=== PATIENT | male | born 1970 | race American Indian/Alaskan Native ===

== ENCOUNTER → 2016-07-31 | Outpatient (CLI) | payer BC, OTHER ==
--- NOTE | ~2016-07-31 | EKG ---
[address] [address] ELECTROCARDIOGRAM REPORT Name: RAJWINDER MARRUFO [facility] Room #: REG CLI [facility]#: [id number] Admission: 07/31/16 Attend Phys: Eder Singh MD Discharge: Date of : 68 Report #: [id number] THIS REPORT FOR: //name// [facility] Test Date: 2016-07-31 Test Time: 11:43:27 Pat Name: RAJWINDER MARRUFO Department: Room: Gender: M Press Catcher: nighat : 1970 Requested By: Eder Singh Order Number: [id number] MD: Nitin Marie Measurements Intervals [place] Rate: 68 P: 38 [place]: 165 QRS: -27 QRSD: 100 T: 75 QT: 422 QTc: 449 Interpretive Statements Sinus rhythm Borderline left axis deviation Poor R wave progression No previous ECG available for comparison Electronically Signed On 08-01-2016 7:21:28 CDT by Nitin Marie [email or web address] <ELECTRONICALLY SIGNED> By: Nitin Marie MD, [facility] 08/01/16 0721 1143 1143 Nitin Marie MD, FACC /EPI
== END ==
LOC: CV
DX: Z01.818 Encounter for other preprocedural examination (principal); E04.9 Nontoxic goiter, unspecified; E21.3 Hyperparathyroidism, unspecified

== ENCOUNTER 2016-08-06 05:25 | Inpatient (IN) | payer BC, OTHER ==
[~2016-08-06] VITALS: Ht 172.7 cm; Wt 81.6 kg
--- NOTE | ~2016-08-06 | H ---
[facility] [place] [address] HISTORY AND PHYSICAL Name: RAJWINDER [place]ARRU[place] [facility] Room #: 310-P REG [facility].#: [id number] Admission: 08/06/16 Attend Phys: Darrell Cruz MD Discharge: Date of : 68 Report #: [id number] THIS REPORT FOR: //name// CC: [facility] physician/PCP SOURAV Cruz DATE OF SERVICE: 08/06/2016 REASON FOR ADMISSION: Post parathyroidectomy. HISTORY OF PRESENT ILLNESS: This is a 46-year-old male who has a long history of renal problems. Most recently, he has been on hemodialysis. He has developed severe secondary hyperparathyroidism. He has been unable to get this controlled in spite of aggressive therapy with phosphate binders, dietary changes, Sensipar, which is a calcimimetic. He has run parathyroid hormone level as high as 2000. He had been referred from dialysis in our group to Dr. Sourav Singh of ENT. Earlier today, Dr. Singh did a total parathyroidectomy and autotransplantation of part of one gland in the sternocleidomastoid muscle. With that procedure, the patient had an intraoperative drop of his parathyroid hormone level, which was quite dramatic. He was 1473 at the beginning of surgery, by 15:10 this afternoon he dropped to 53.1. With that, his calcium level was 7.5, but has dropped to 7.2 with an albumin of 3.0. At this time, the patient states he is doing fairly well. He has a mild sore throat and some pain in his neck. He is speaking without problems and he has been able to swallow fairly well. Describes no symptoms of numbness, tingling, perioral sensation or muscle spasm. From a renal standpoint, the patient has end-stage renal disease and usually dialyzes on Thursday, Thursday and Thursday. He dialyzes using a left forearm AV graft. Today would be his normal dialysis day. He last dialyzed on 08/04/2016 and that was uneventful. PAST MEDICAL HISTORY: The patient developed end-stage renal disease about 2001 with the etiology being hypertension. He did dialysis for about a year. He would have developed chronic renal failure about 1991 and has first transplant about 1992 that last until about 2000 then he was on dialysis from 9782-0736 an din 2007 received a second kidney transplant. It functioned well until 2016. Last December in 2015, he restarted dialysis again. He continues on some low grade immunosuppressive therapy including Imuran and prednisone. He has the secondary hyperparathyroidism. He has some Anemia of end-stage renal disease and is on chronic Aranesp therapy. Blood pressure has actually been well controlled. [address] [address] HISTORY AND PHYSICAL Name: RAJWINDER MARRUFO [facility] [place] #: 310-P [facility] M.R.#: [id number] Admission: 08/06/16 Attend Phys: Darrell Cruz MD Discharge: Date of : 68 Report #: [id number] PAST SURGICAL HISTORY: Include placement of a left forearm AV graft, two kidney transplants, and surgery on his left hand. FAMILY HISTORY: Negative for renal disease. SOCIAL HISTORY: The patient is single, lives in [place], [place]. He works for [employer]. He is a nonsmoker. REVIEW OF SYSTEMS: Has been tolerating his dialysis fairly well recently, denies nausea or vomiting, no problems with bowel habits. He is anuric. He no longer requires antihypertensive medications. He reports no visual or hearing changes. Again, he does have some soreness in his neck at this time. He has not had problems with peripheral edema. No chest pain or palpitations. No dyspnea, cough. PHYSICAL EXAMINATION: GENERAL: Very pleasant 46-year-old male, awake, alert and oriented. HEENT: Pupils are equal and reactive. Sclerae nonicteric. Oral mucosa is moist. NECK: Postoperatively with a drain in place, small amount of drainage from no swelling. CHEST: Clear bilaterally. CARDIOVASCULAR: Heart has a regular rate and rhythm. ABDOMEN: Has active bowel sounds, is soft and nontender. EXTREMITIES: Show no peripheral edema. Has left forearm a graft in place with an excellent bruit and thrill. NEUROLOGIC: Grossly intact. No Chvostek or Trousseau sign. LABORATORY DATA: From this morning, sodium 143, potassium 4.4, chloride 102, bicarbonate 27, BUN 69, creatinine 10.8, glucose 94, calciums are as noted above, total protein 7.4, albumin 3.0, PTH as noted above, white count 3.8, hemoglobin 10.4, hematocrit 33.6, platelets 163,000. ASSESSMENT: 1. Immediate post total parathyroidectomy for severe secondary hyperparathyroidism. He is medically stable at this time. Calcium levels are started to drop. 2. Hungry bone syndrome post parathyroidectomy. He has been put on oral calcium in the form of Tums. We will change that to a slightly higher dose to be at 1000 mg q.i.d. I will put him on some oral IV calcium as his calcium levels dropping rather substantially already. We run that continuously low rate. We will also put him on a high dose calcitriol. We will follow along in his calcium levels. Tomorrow, we will dialyze him on a high calcium dialyzate. I have explained to the patient that it may take a number of days to get his calcium level stabilized and he expressed understanding. [facility] [address] [place] [address] HISTORY AND PHYSICAL Name: RAJWINDER MARRUFO [facility] Room #: 310-P REG [facility].#: [id number] Admission: 08/06/16 Attend Phys: Darrell Cruz MD Discharge: Date of : 68 Report #: [id number] 3. End-stage renal disease due for dialysis. We will put in orders for dialysis tomorrow morning with a three calcium dialyzate. 4. Kidney transplant. The patient remains on low dose immunosuppressive therapy. We will continue those doses tomorrow. 5. Anemia of end-stage renal disease, chronically on Aranesp therapy. PLAN: 1. Calcium carbonate 1000 mg q. 6 hours orally. 2. Put some calcium gluconate 100 mEq in a liter of D5 half normal saline at a run of 50 mL an hour. 3. Recheck calcium levels. 4. Recheck full labs in the morning. 5. Dialysis ordered for tomorrow. 6. I spoke with the patient and the nurse and there were to call me if he has any symptoms of hypocalcemia and we will work through those symptoms. 7. Continue other medications. 8. We will follow along the care of this pleasant patient. <ELECTRONICALLY SIGNED> By: Charly Bocanegra MD 08/07/16 0558 [id number] Darrell Cruz MD /omer
--- NOTE | ~2016-08-06 | S ---
[facility] [place] [address] SURGICAL PATH RPT PROCEDURE Name: RAJWINDER MARRUFO [facility] Room #: 310-P ADM IN M.R.#: [id number] Admission: 08/07/16 Date of : 68 Discharge: Report #: [id number] Path Case #: [id number] PATHOLOGY REPORT COLLECTION DATE: 08/06/2016 RECEIVED DATE: 08/06/2016 SUBMITTING PHYS: Dr. Eder Singh OTHER PHYS: SPECIMEN(S) RECEIVED: A.Left superior parathyroid B.Left inferior parathyroid C.Right inferior parathyroid (C1), remainder right inferior parathyroid (C2) D.Right superior parathyroid * * * * * * * * * * * * FINAL DIAGNOSIS: A. Parathyroid, left superior parathyroid, resection: - Markedly hypercellular parathyroid tissue admixed with adipose tissue. B. Parathyroid, left inferior parathyroid, resection: - Markedly hypercellular parathyroid tissue admixed with mature adipose tissue. - 2 mm reactive lymph node. C. Parathyroid, right inferior parathyroid, resection: - Markedly hypercellular parathyroid tissue admixed with adipose tissue. D. Parathyroid, right superior parathyroid, resection: - Markedly hypercellular parathyroid tissue admixed with adipose tissue. (IUV:csd; d/t: 08/07/2016) PATHOLOGIST: Gerri Carroll M.D. REPORT ELECTRONICALLY SIGNED BY: Gerri Carroll M.D. DATE/TIME: 08/07/2016 15:26 * * * * * * * * * * * * GROSS PATHOLOGY: A. Specimen A is received fresh from the OR labeled with the patient's name and "left superior parathyroid" and consists of an oval fatty fragment of tissue measuring 1.2 x 1.0 x 0.3 cm. Submitted entirely for frozen section as FSA1. Subsequently submitted for permanent sections as A1. B. Specimen B is received fresh from the OR labeled with the patient's name and "left inferior parathyroid" and consists of a [facility] [address] [place] [address] SURGICAL PATH RPT PROCEDURE Name: RAJWINDER MARRUFO [facility] Room #: 310-P ADM IN ..#: [id number] Admission: 08/07/16 Date of : 68 Discharge: Report #: [id number] Path Case #: [id number] fatty fragment of tissue measuring 2.2 x 1.5 x 1.0 cm. The specimen is bisected and submitted entirely for frozen section as FSB1. Subsequently submitted for permanent sections as B1. C. Specimen C is received fresh from the OR labeled with the patient's name and "right inferior parathyroid" and consists of an oval fatty fragment of tissue measuring 1.5 x 1.0 x 0.3 cm. The specimen is bisected and submitted entirely for frozen section as FSC1. Subsequently submitted for permanent sections as C1. An additional tiny 0.2 cm fragment is received for permanent sections only. This is submitted for permanent section only as C2. D. Specimen D is received fresh from the OR labeled with the patient's name and "right superior parathyroid" and consists of an oval fatty fragment of tissue measuring 2.0 x 1.5 x 1.0 cm. The specimen is bisected and submitted entirely for frozen section as FSD1. Subsequently submitted for permanent sections as D1. (IUV:csd; d/t: 08/06/2016) FROZEN SECTION DIAGNOSIS: (Gerri Carroll M.D.) FSA1, left superior parathyroid, excision: - Hypercellular parathyroid tissue present. FSB1, left inferior parathyroid, excision: - Hypercellular parathyroid tissue present. FSC1, right inferior parathyroid, excision: - Hypercellular parathyroid tissue present. FSD1, right superior parathyroid, excision: - Hypercellular parathyroid tissue present. These findings are discussed with Dr. Eder Singh in OR1 at [facility], and a written report is placed on the patient's chart. (IUV:csd; d/t: 08/06/2016) Testing performed by [facility] at [address] [place] [address] CLINICAL HISTORY: None Provided INITIAL CPT CODE(S): A; 30953, 13540 B; 46022, 92741, 03035 C; 15606, 42390 D; 17158, 56108 Professional services [place] [address] SURGICAL PATH RPT [facility]: [facility]-P [facility] IN M.R.#: [id number] Admission: 08/07/16 Date of : 68 Discharge: Report #: [id number] Path Case #: [id number] [address], [place] [address] Technical services performed by [facility] at [address] [place] [address], [facility] [address] [address]. [facility] [address] [place] [address] PHONE: [phone] DIRECTOR: Aaron Garcia M.D. * * * END OF REPORT * * *
--- NOTE | ~2016-08-06 | O ---
[facility] [place] [address] OPERATIVE REPORT Name: RAJWINDER MARRUFO [facility] Room #: 310-P ADM IN M.R.#: [id number] Admission: 08/07/16 Attend Phys: Darrell Cruz MD Discharge: Date of : 68 Report #: [id number] THIS REPORT FOR: //name// CC: [facility] physician/PCP Kyle Singh DATE OF SERVICE: 08/06/2016 SURGEON: Eder Singh M.D. PREOPERATIVE DIAGNOSES: 1. Secondary hyperparathyroidism. 2. Chronic renal failure stage IV. 3. Immunosuppression. 4. History of kidney transplant. POSTOPERATIVE DIAGNOSES: 1. Secondary hyperparathyroidism. 2. Chronic renal failure stage IV. 3. Immunosuppression. 4. History of kidney transplant. OPERATION PERFORMED: 1. Total parathyroidectomy. 2. Parathyroid autotransplantation, right superior parathyroid to right sternocleidomastoid muscle portion. ROOM SERVICE ATTENDANT: OR staff. INDICATIONS: The patient is a 46-year-old gentleman referred by his engineering supervisor, Dr. Lim for surgical options on chronic secondary hyperparathyroidism that has been nonresponsive to Sensipar. The patient remains symptomatic with muscle pain, weakness and bone pain. The patient presents with PTHs running in the range of 1713.4 and as high as 2800. The patient's history is significant for chronic renal disease. He has had a history of 2 previous kidney transplantations with one failure and is pending a third kidney transplant. The patient is on chronic immunotherapy. In light of the above, options of surgery were discussed. DESCRIPTION OF PROCEDURE: The patient was brought to the operating room and placed supine on the operating table. After adequate general anesthesia was achieved via endotracheal intubation with a Xomed nerve integrity monitoring endotracheal tube, shoulder roll was placed and the neck extended. Planned incision was marked out in a relaxed skin tension line above the manubrium and injected with 1% Xylocaine with 1:100,000 epinephrine. He was then prepped with [facility] [place] [place] [address] OPERATIVE [facility] #: 310-P [facility] IN ..#: [id number] Admission: 08/07/16 Attend Phys: Darrell Cruz MD Discharge: Date of : 68 Report #: [id number] Betadine and draped in a sterile fashion. The procedure began with an incision through skin, subcutaneous tissue and platysma. Subplatysmal flaps were elevated superiorly and inferiorly. Dissection was made down to the strap muscles. These were divided vertically in the midline and retracted laterally. Dissection was made down to the thyroid gland. Beginning on the patient's left side, exploration began along the left inferior thyroid artery, a large hypercellular parathyroid was identified just lateral to this just at the inferior border of the thyroid. This was carefully dissected. The afferent and efferent vessels clipped between Ligaclips and divided and the parathyroid confirmed with a gamma probe. The parathyroid was then delivered in saline on the back table. Examination began superiorly at the cricothyroid joint. The superior parathyroid was found inferior to the recurrent laryngeal nerve and beginning retroesophageal. Again, a hypercellular parathyroid measuring about a cm in size, this was carefully dissected to avoid the recurrent nerve and again placed in saline on the back table. Attention was then turned to exploration down the tracheoesophageal groove once the nerve had been identified, did not reveal any other suspicious masses, also this was explored along the carotid sheath. At this point, attention was turned to the right side while awaiting both of the hypercellular parathyroids from the left were sent off the field as specimen to pathology and did confirm 2 hypercellular parathyroids. The dissection and exploration then began on the right side beginning with the inferior thyroid artery. This was then dissected. A hypercellular parathyroid was identified just inferior and lateral to the vein at the inferior border of the thyroid. This was again dissected with careful dissection, afferent and efferent vessels clipped between Ligaclips and this was put into a specimen cup with saline. Attention then turned superior. Dissection again began along the thyroid capsule, dissecting down until the recurrent laryngeal nerve was found in the tracheoesophageal groove. This was tracked superiorly to the cricothyroid joint, confirmed with probe stimuli. Using the gamma probe again this was examined, the parathyroid was found just lateral to the cricothyroid joint and nerve in the fat. This was again very hypercellular parathyroid. This was dissected free. Again, the afferent and efferent vessels were clipped between Ligaclips and this was divided. This was placed in saline. Examination was then given along the tracheoesophageal groove after the nerve was positively identified and then along the carotid sheath. No other abnormal parathyroids were noted. A portion of the superior parathyroid on the right was then kept behind for autotransplantation. Both of these specimens were delivered off the field to pathology for frozen section. Both confirmed hypercellular parathyroid glands. Once this was confirmed, the portion of parathyroid that was kept as a more normal size parathyroid was minced and placed into a pocket in the right sternocleidomastoid muscle, this was marked with Ligaclips for identification in the future. At this point, the tracheoesophageal groove was irrigated, hemostasis was assured with a combination of clip ligature and bipolar cautery, both nerves were confirmed to be intact and the powdered Ehsan was placed opposite [facility] [address] [place] [address] OPERATIVE REPORT [facility]: [facility] Room #: 310-P [facility] IN M.R.#: [id number] Admission: 08/07/16 Attend Phys: Darrell Cruz MD Discharge: Date of : 68 Report #: [id number] each cricothyroid joint. The thyroid was returned to its bed and then the strap muscles were closed in the midline with interrupted 3-0 Vicryl. Ten minutes after the fourth parathyroid had been harvested, the iPTH was drawn. Preoperative baseline prior to beginning the case today was 1473. Ten minutes after removal, this had come down to 103.5. On the way out of the room, a second iPTH was drawn, which is pending at the time of dictation. After the strap muscles were closed in the midline, a 10 Sloven[place] Haresh drain was placed through a separate stab incision and curled into the wound. This was sutured in place with 2-0 silk and connected to bulb suction. Skin flaps were then returned anatomically and the platysma was closed with interrupted 3-0 Vicryl, 4-0 Vicryl deep dermal sutures were placed followed by a running subcuticular Prolene on skin. Mastisol and Steri-Strips were applied followed by an Op-Site. The patient was then returned to anesthesia, awakened without difficulty and returned to recovery in good condition. Sponge and needle counts were correct. There were no complications. Blood loss was about 20 mL. The patient will be watched overnight for monitoring of his calcium. He understands that if there is significant drop in calcium and any evidence of hungry bone syndrome that he will maybe in the hospital several days for support. The patient will be admitted to his engineering supervisor, Dr. Lim, to assist with medical treatment. <ELECTRONICALLY SIGNED> By: Eder Singh MD 08/07/16 1229 1531 1801 Eder Singh MD /nt
[~2016-08-06 05:25] MED LIST: ASPIR 8181 MG PO; IMURAN 50MG TAB50 M1 PO; PREDNISONE 5 MG5 M1 PO; SENSIPAR 30 MG30 M1 PO; TRAMADOL 50 MG50 MG PO; ZANTAC 150MG T150 MG PO
[2016-08-06 08:50] LABS: HEMATOCRIT 33.6 % (42.0-52.0); HEMOGLOBIN 11.4 gm/dL (14.0-18.0); MCH 31.7 pg (26.0-34.0); MCHC 33.8 g/dL (28.0-37.0); MCV 93.7 fL (80.0-100.0); RBC 3.58 mil/uL (4.50-6.00); RDW 17.3 % (10.5-14.5); WBC 3.8 thou/uL (4.0-11.0)
[2016-08-06 08:58] LABS: CALCIUM 7.5 mg/dL (8.5-10.1); CREATININE 10.8 mg/dL (0.6-1.3); POTASSIUM 4.4 mmol/L (3.5-5.1)
[2016-08-06 09:03] LABS: ALBUMIN 3.2 g/dL (3.4-5.0); TOTAL BILIRUBIN 0.4 mg/dL (<0.1-1.0); TOTAL PROTEIN 7.4 g/dL (6.4-8.2)
[2016-08-06 09:34] VITALS: BP 102/84
[2016-08-06 15:47] LABS: CALCIUM 7.2 mg/dL (8.5-10.1); MAGNESIUM 1.9 mg/dL (1.8-2.4)
[2016-08-06 17:28] VITALS: BP 135/91
[2016-08-06 20:20] VITALS: BP 120/94
[2016-08-06 23:25] VITALS: BP 108/74
[2016-08-07 03:55] VITALS: BP 115/68
[2016-08-07 05:34] LABS: HEMATOCRIT 32.5 % (42.0-52.0); HEMOGLOBIN 10.9 gm/dL (14.0-18.0); MCH 31.6 pg (26.0-34.0); MCHC 33.5 g/dL (28.0-37.0); MCV 94.3 fL (80.0-100.0); RBC 3.45 mil/uL (4.50-6.00); RDW 17.8 % (10.5-14.5); WBC 7.1 thou/uL (4.0-11.0)
[2016-08-07 05:58] LABS: ALBUMIN 2.9 g/dL (3.4-5.0); PHOSPHORUS 3.6 mg/dL (2.5-4.9); POTASSIUM 5.3 mmol/L (3.5-5.1)
[2016-08-07 06:20] LABS: CREATININE 12.9 mg/dL (0.6-1.3)
[2016-08-07 11:00] VITALS: BP 117/55
[2016-08-07 17:52] VITALS: BP 113/57
[2016-08-07 19:07] VITALS: BP 122/61
[2016-08-08 03:45] VITALS: BP 133/72
[2016-08-08 16:33] VITALS: BP 142/80
[2016-08-08] MEDS ORDERED: TUMS CHEWA500 MG/11 PO (16:51)
[2016-08-08] MEDS ORDERED: CALCITRIOL0.25 MCG PO (16:52)
[2016-08-08 19:15] VITALS: BP 132/75
[2016-08-09 03:51] VITALS: BP 128/69
[2016-08-09 07:23] LABS: ALBUMIN 2.7 g/dL (3.4-5.0); CALCIUM 7.7 mg/dL (8.5-10.1); PHOSPHORUS 2.2 mg/dL (2.5-4.9); POTASSIUM 4.7 mmol/L (3.5-5.1)
[2016-08-09 07:28] LABS: CREATININE 10.7 mg/dL (0.6-1.3)
[2016-08-09 11:38] VITALS: BP 164/71
[2016-08-09 14:39] VITALS: BP 164/71
== END 2016-08-09 15:38 | disposition home or self-care (01) | DRG 625 ==
LOC: 3N 05:25 → TBA 05:25 → OR 05:25 → TBA 05:26 → PRE 09:42 → EDSTATUS 11:04 → OR 11:08 → 3N 17:09 → OR 08-07 08:56 → 3N 08-07 09:36
PROVIDERS: Internal Medicine Nephrology; Otolaryngology Plastic Surgery within the Head & Neck
DX: E21.1 Secondary hyperparathyroidism, not elsewhere classified (principal); N18.6 End stage renal disease; I12.0 Hypertensive chronic kidney disease with stage 5 chronic kidney disease or end stage renal disease; Z94.0 Kidney transplant status; K21.9 Gastro-esophageal reflux disease without esophagitis; D63.8 Anemia in other chronic diseases classified elsewhere; Z99.2 Dependence on renal dialysis
CPT/HCPCS: 10795; 32100; 50010; 50101; 50331; 50386; 50417; 52190; 52220; 52287; 56524; 56526; 56528; 56760; 57006; 62110; 62900; 70005

== ENCOUNTER 2017-06-22 21:09 | Emergency (ER) | payer BC, OTHER ==
[~2017-06-22] VITALS: Ht 172.7 cm; Wt 82.4 kg
[~2017-06-22 21:09] MED LIST changes: +CALCITRIOL0.25 MCG PO; +TUMS CHEWA500 MG/11 PO
[2017-06-22] MEDS ORDERED: AZITHROMYCIN 2250 MG PO (22:49)
[2017-06-22] MEDS ORDERED: TESSALON PERLE100 MG PO (22:49)
[2017-06-22] MEDS ORDERED: VENTOLIN HFA 1818 GM INH (22:49)
[2017-06-22 23:10] VITALS: BP 130/72
== END 2017-06-22 23:11 | disposition home or self-care (01) ==
LOC: ER 21:09
DX: J18.9 Pneumonia, unspecified organism (principal); K21.9 Gastro-esophageal reflux disease without esophagitis; Z99.2 Dependence on renal dialysis; Z94.0 Kidney transplant status